=== PATIENT | female | born 1955 | race Two or more races ===

== ENCOUNTER 2017-04-16 12:33 | Inpatient (IN) | payer OTHER ==
[~2017-04-16] VITALS: Ht 152.4 cm; Wt 51.7 kg
--- NOTE | 2017-04-16 12:40 | NUR ---
SAMIA 889 FROM [facility] FOR ABD PAIN X1 DAY SENT BY DR CLINE FOR ADMISSION FOR R/O APPENDECITIS AND SBO. RR IS EVEN AND UNLABORED WITH NAD NOTED. SKIN IS WARM AND DRY. PATIENT PLACED ON HOSPITAL GOWN. AWAITING MD FOR EVAL.
[2017-04-16] MEDS ORDERED: ONDANSETRON HCL/PF 4 MG/2 ML VIAL IVP ONE (13:00)
[2017-04-16] MEDS ORDERED: MORPHINE SULFATE INJ 2 MG/ML DISP.SYRIN IV ONE (13:00)
[2017-04-16] MEDS ORDERED: IV NS 0.9% 1,000 ML BAG IV ONE (13:00)
[2017-04-16 13:10] LABS: BASOPHILS # (AUTO) 0.3 /CMM (0.0-0.2); BASOPHILS % (AUTO) 1.6 % (0.0-2.0); EOSINOPHILS # (AUTO) 0.2 /CMM (0.0-0.7); EOSINOPHILS % (AUTO) 0.8 % (0.0-6.0); HEMATOCRIT 46 % (33-45); HEMOGLOBIN 15.3 g/dL (11.5-14.8); LYMPHOCYTES # (AUTO) 0.5 /CMM (0.8-4.8); LYMPHOCYTES % (AUTO) 2.4 % (20.0-44.0); MEAN CORPUSCULAR HEMOGLOBIN 29 PG (26.0-33.0); MEAN CORPUSCULAR HGB CONC 34 g/dl (31.0-36.0); MEAN CORPUSCULAR VOLUME 88 fL (82-100); MONOCYTES # (AUTO) 0.4 /CMM (0.1-1.30); MONOCYTES % (AUTO) 2.1 % (2.0-12.0); NEUTROPHILS # (AUTO) 19.9 /CMM (1.8-8.9); NEUTROPHILS % (AUTO) 93.1 % (43.0-81.0); PLATELET COUNT (AUTO) 247 /CMM (150-450); RDW COEFFICIENT OF VARIATION 12.8 (11.5-15.0); RED BLOOD CELL COUNT(AUTO) 5.22 MIL/uL (4.0-5.2); WHITE BLOOD COUNT (AUTO) 21.3 K/uL (4.3-11.0)
[2017-04-16 13:16] LABS: CALCIUM, SERUM 9.7 mg/dL (8.5-10.1); CARBON DIOXIDE 28 mmol/L (21-32); CHLORIDE 101 mmol/L (98-107); CREATININE 0.9 mg/dL (0.6-1.3); GLUCOSE 173 mg/dL (74-106); POTASSIUM 4.6 mmol/L (3.5-5.1); SODIUM SERUM 140 mmol/L (136-145); UREA NITROGEN, BLOOD 25 mg/dL (7-18)
[2017-04-16 13:24] LABS: TROPONIN I < 0.017 ng/mL (0.00-0.056)
[2017-04-16 13:32] LABS: ALANINE AMINOTRANSFERASE 59 U/L (12-78); ALBUMIN 3.8 g/dL (3.4-5.0); ALKALINE PHOSPHATASE 120 U/L (46-116); ASPARTATE AMINOTRANSFERASE 55 U/L (15-37); BILIRUBIN,DIRECT 0.3 mg/dL (0.0-0.2); BILIRUBIN,TOTAL 1.4 mg/dL (0.2-1.0); LIPASE 102 U/L (73-393); TOTAL PROTEIN, SERUM 8.8 g/dL (6.4-8.2)
[2017-04-16] MEDS ORDERED: MORPHINE SULFATE INJ 4 MG/ML DISP.SYRIN ONE (13:49)
[2017-04-16] MEDS ORDERED: ONDANSETRON HCL/PF 4 MG/2 ML VIAL ONE (13:49)
[2017-04-16 13:52] LABS: BAND % (MANUAL) 3 % (0.0-5.0); LYMPHOCYTES % (MANUAL) 4 % (16-48); MONOCYTES % (MANUAL) 4 % (0-11.0); NEUTROPHILS % (MANUAL) 89 (42-76)
[2017-04-16 14:03] LABS: APPEARANCE,URINE Slightly Cloudy (CLEAR); BILIRUBIN,URINE SMALL (NEGATIVE); BLOOD, URINE Trace-lysed Ery/uL (NEGATIVE); COLOR,URINE Yellow (YELLOW); KETONES,URINE 15 (NEGATIVE); LEUKOCYTE ESTERASE ,URINE Negative (NEGATIVE); NITRITE, URINE Negative (NEGATIVE); PH,URINE 8.5 (5.0-8.0); PROTEIN,URINE 100 mg/dl (NEGATIVE); UGLUCOSE Negative (NEGATIVE)
[2017-04-16 14:13] LABS: BACTERIA,URINE None seen /HPF (None Seen); SQUAMOUS EPITHELIAL CELL,UR Few /HPF (None Seen); URINE AMORPHOUS PHOSPHATES Moderate /HPF (None Seen); WBC,URINE 0-3 /HPF (0-3)
[2017-04-16] MEDS ORDERED: CIPROFLOXACIN IV RTU 400 MG in PREMIX 1 EA IV SCH (14:30)
[2017-04-16] MEDS ORDERED: METRONIDAZOLE 500MG/ NS 100ML 500 MG in PREMIX 1 EA IV SCH (14:30)
[2017-04-16] MEDS ORDERED: IV NS 0.9% 500 ML BAG IV ONE (14:30)
[2017-04-16] MEDS ORDERED: METRONIDAZOLE 500MG/ NS 100ML 100 ML IV ONE (14:52)
--- NOTE | 2017-04-16 15:37 | NUR ---
PATIENT ASSIGNED TO TELE 119-1, DX WITH ABD PAIN, ELEVATED WBC, ELEVATED LACTIC ACID.
[2017-04-16 16:00] VITALS: BP 141/86
--- NOTE | 2017-04-16 16:03 | NUR ---
PAGED DR CLINE MENHADEN VESSEL PILOT FOR PANEL
[2017-04-16] MEDS ORDERED: NA P133E RC (16:17)
[2017-04-16] MEDS ORDERED: ALBU2.5V38 IH ×2 (16:17)
[2017-04-16] MEDS ORDERED: GABA-532 GT (16:17)
[2017-04-16] MEDS ORDERED: ASPI-1169 GT (16:17)
[2017-04-16] MEDS ORDERED: ATOR10TA GT (16:17)
[2017-04-16] MEDS ORDERED: METO25TA6 GT (16:17)
[2017-04-16] MEDS ORDERED: DOCU50LI GT (16:17)
[2017-04-16] MEDS ORDERED: MAGN400O6 GT (16:17)
[2017-04-16] MEDS ORDERED: ACET160E36 GT ×2 (16:17)
[2017-04-16] MEDS ORDERED: LACT-209 GT (16:17)
[2017-04-16] MEDS ORDERED: BISA10SU61 RC (16:17)
[2017-04-16] MEDS ORDERED: LEVE100S GT (16:17)
[2017-04-16] MEDS ORDERED: SENN-167 GT (16:17)
--- NOTE | 2017-04-16 16:23 | NUR ---
REPORT GIVEN TO SALENA JOLLY FOR MARYA TELE/ALONZO 107
[2017-04-16] MEDS ORDERED: ONDANSETRON HCL/PF 4 MG/2 ML VIAL IVP PRN (16:30)
[2017-04-16] MEDS ORDERED: Z GUARD REMEDY 2 OZ OINT TP PRN (16:30)
[2017-04-16] MEDS ORDERED: MORPHINE SULFATE INJ 2 MG/ML DISP.SYRIN IV PRN (16:30)
[2017-04-16] MEDS ORDERED: MAG HYDROX/AL HYDROX/SIMETH 30 ML UDC PO PRN (16:30)
[2017-04-16] MEDS ORDERED: MAGNESIUM HYDROXIDE 30 ML UDC PO PRN (16:30)
[2017-04-16 17:00] VITALS: BP 143/55
[2017-04-16] MEDS: IV D5/0.45 NACL 1,000 ML IV SCH (17:06)
--- NOTE | 2017-04-16 18:29 | NUR ---
TD RN NOTES PT RECEIVED STABLE. ENDORSE GIVEN BY NURSE PADRON. WILL MONITOR PT CLOSELY.
--- NOTE | 2017-04-16 18:30 | NUR ---
TD RN NOTES NO ACUTE CHANGES NOTED DURING THE SHIFT. DUDE MEDS GIVEN. PROVIDED COMFORT AND SAFETY. WILL ENDORSE TO THE PM NURSE.
--- NOTE | 2017-04-16 18:32 | NUR ---
TD RN NOTES LACTIC ACID 4.1. REPORTED TO DR CLINE. NO NEW ORDERS.
[2017-04-16] MEDS: LEVOFLOXACIN 500 MG /D5W 100ML 500 MG in PREMIX 1 EA IV SCH (18:36)
--- NOTE | 2017-04-16 18:53 | NUR ---
TD RN NOTES [facility] KIN FOR ADELINE HERNANDEZ. TALK TO MARLENE MCDANIELBILLING SERVICES MANAGER. VIOLETA SUP VERBALIZED TO CALL BACK TOMORROW AT 8AM
--- NOTE | 2017-04-16 19:30 | NUR ---
RN INITIAL NOTES RECEIVED PT AWAKE ON BED, NON-VERBAL AND PASSIVE. TRACH IS INTACT BUT ON 2L NASAL CANNULA, NO S/S OF RESP DISTRESS, SATURATING WELL. CURRENTLY SR ON THE MONITOR, HR 90'S. SINGH CATH INTACT. GTUBE IS CLAMPED, NPO. LEFT FOREARM 20G WITH IV ABX RUNNING, FLUSHED AND PATENT, NO S/S OF INFILTRATION/INFECTION, DRESSING CDI. BED LOW AND LOCKED, SIDERAILS UP, CALL LIGHT WITHIN REACH, BED ALARM ON. WILL CONTINUE TO MONITOR
[2017-04-16 20:00] VITALS: BP 143/82
[2017-04-17] VITALS: BP 135/89
[2017-04-17] MEDS: HYDROCODONE/APAP 5/325MG 1 EACH TABLET PO PRN ×2 (00:15→16:34)
[2017-04-17] MEDS: IV D5/0.45 NACL 1,000 ML IV SCH ×3 (02:11→22:50)
[2017-04-17 04:00] VITALS: BP 147/90
--- NOTE | 2017-04-17 06:20 | NUR ---
RN CLOSING NOTES PT REMAINS STABLE OF THE MOMENT. ALL DUE MEDS GIVEN, AM CARE PROVIDED. WILL ENDORSE MARYA TO AM RN
[2017-04-17 06:24] LABS: BASOPHILS % (AUTO) 0.1 % (0.0-2.0); EOSINOPHILS % (AUTO) 0.1 % (0.0-6.0); HEMATOCRIT 40 % (33-45); HEMOGLOBIN 13.4 g/dL (11.5-14.8); LYMPHOCYTES # (AUTO) 0.8 /CMM (0.8-4.8); LYMPHOCYTES % (AUTO) 4.7 % (20.0-44.0); MEAN CORPUSCULAR HEMOGLOBIN 30 PG (26.0-33.0); MEAN CORPUSCULAR HGB CONC 34 g/dl (31.0-36.0); MEAN CORPUSCULAR VOLUME 88 fL (82-100); MONOCYTES # (AUTO) 0.7 /CMM (0.1-1.30); MONOCYTES % (AUTO) 4.2 % (2.0-12.0); NEUTROPHILS # (AUTO) 15.8 /CMM (1.8-8.9); NEUTROPHILS % (AUTO) 90.9 % (43.0-81.0); PLATELET COUNT (AUTO) 191 /CMM (150-450); RDW COEFFICIENT OF VARIATION 13.5 (11.5-15.0); RED BLOOD CELL COUNT(AUTO) 4.48 MIL/uL (4.0-5.2); WHITE BLOOD COUNT (AUTO) 17.3 K/uL (4.3-11.0)
--- NOTE | 2017-04-17 07:00 | NUR ---
sheri initial note received pt in bed, passive, response to pain/touch stimuli, unable to track or follow commands, pt has a portex #6 capped, pt is on 2l nc, sating well, no s/s of resp.distress or discomfort noted at this time, pt is on tele monitor showing sr @92 bpm, no s/s of chest pain or discomfort noted at this time, pt has gtube, clamped, pt is currently npo at this time, pt has f/c draining yellow urine to gravity, pt has lfa #20g, running d51/2ns@100ml/hr, c/d/i/patent, flushing well, no s/s of infection/ infiltration noted at this time, all safety measures in place at all times, call light within easy reach, will monitor pt closely for changes
[2017-04-17 07:38] LABS: ALBUMIN 2.9 g/dL (3.4-5.0); BILIRUBIN,DIRECT 0.4 mg/dL (0.0-0.2); BILIRUBIN,TOTAL 2.1 mg/dL (0.2-1.0); CALCIUM, SERUM 8.5 mg/dL (8.5-10.1); CREATININE 0.7 mg/dL (0.6-1.3); MAGNESIUM 1.8 mg/dL (1.8-2.4); PHOSPHORUS 2.3 mg/dL (2.5-4.9); POTASSIUM 3.4 mmol/L (3.5-5.1); TOTAL PROTEIN, SERUM 7.1 g/dL (6.4-8.2)
[2017-04-17 08:00] VITALS: BP 135/84
--- NOTE | 2017-04-17 08:03 | NUR ---
sheri note pt is awaiting hepatic biliary hida scan, pt has no family on file, per snf need to call back to speak for clinical candy supervisor
--- NOTE | 2017-04-17 09:11 | NUR ---
sheri note called [facility], ,spoke to robin diaz regarding family and consent for hida scan, was informed pt has no family and [facility] makes decisions for the pt, per rn social welfare administrator will call regarding consent
[2017-04-17] MEDS: PANTOPRAZOLE 40 MG VIAL IV SCH (09:33)
--- NOTE | 2017-04-17 10:16 | NUR ---
sheri note received consent from 2 doctors for hida scan, consent is in the pt chart. pt has no family
[2017-04-17 12:00] VITALS: BP 153/90
--- NOTE | 2017-04-17 12:37 | NUR ---
sheri note joceline from radiology take pt to hida scan with still photographer
[2017-04-17] MEDS ORDERED: POTASSIUM PHOSPHATE MM 7.5 MMOL in IV NS 0.9% 100 ML IV SCH (13:00)
--- NOTE | 2017-04-17 13:00 | NUR ---
ALONZO NOTE- INFORMED MD THAT MED RECON WAS NOT DONE.
--- NOTE | 2017-04-17 14:04 | NUR ---
ALONZO NOTE- PT RETURNED FROM HIDA SCAN, [facility]
[2017-04-17] MEDS: POTASSIUM CL. PREMIX PERIPHER. 50 ML IV SCH ×2 (15:06→17:46)
--- NOTE | 2017-04-17 15:48 | NUR ---
sheri note- pt has only 1 iv, attempted to insert new iv x3, pt is a extremely hard stick. awaiting midline insertion
[2017-04-17 16:00] VITALS: BP 128/69
[2017-04-17] MEDS: LEVOFLOXACIN 500 MG /D5W 100ML 500 MG in PREMIX 1 EA IV SCH (17:23)
[2017-04-17 20:00] VITALS: BP 101/66
--- NOTE | 2017-04-17 20:00 | NUR ---
Rn initial note Received pt in bed, response to pain/touch stimuli, unable to track or follow commands, pt has a portex #6 capped, pt is on 2L nc, sating well, no s/s of resp.distress or discomfort noted at this time, pt is on tele monitor showing sr @92 bpm, no s/s of chest pain or discomfort noted at this time, pt has gtube, clamped, pt is currently npo at this time, pt has f/c draining yellow urine to gravity, pt has lfa #20g, running d51/2ns@100ml/hr, c/d/i/patent, flushing well, no s/s of infection/ infiltration noted at this time, all safety measures in place at all times, call light within easy reach, will monitor pt closely for changes
--- NOTE | 2017-04-17 23:30 | NUR ---
RN NOTES DR BURR CAME TO SEE PT AT 2300 FOR A CONSULT, MD LANDEROS HE IS RECOMMENDING A US GUIDED GALLBLADDER DRAINAGE. PT IS KEPT NPO WITH IV FLUIDS ORDERED. RN WILL CONT TO MONITOR AND ENDORSE TO AM SALENA.
[2017-04-18] VITALS: BP 115/63
[2017-04-18] MEDS: ZOLPIDEM TARTRATE 5 MG TABLET PO PRN ×2 (01:59→21:55)
[2017-04-18] MEDS: HYDROCODONE/APAP 5/325MG 1 EACH TABLET PO PRN ×4 (02:00→21:56)
[2017-04-18 04:00] VITALS: BP_SYST 101; BP_SYST 128; BP_DIAS 54; BP_DIAS 69
--- NOTE | 2017-04-18 06:00 | NUR ---
Rn closing note Pt in bed, response by nodding her head, pt has a portex #6 capped, pt is on 2L nc, sating well, no s/s of resp.distress or discomfort noted at this time,pt complained for pain after assessed by MD. pain medication was given. Pt is on tele monitor showing ST @101-104 bpm, no s/s of chest pain or discomfort noted at this time, pt has gtube, clamped, pt is currently npo at this time, pt has f/c draining yellow urine to gravity, pt has lfa #20g, running d51/2ns@100ml/hr, c/d/i/patent, flushing well, no s/s of infection/ infiltration noted at this time, all safety measures in place at all times, call light within easy reach,will endorse to am rn.
[2017-04-18 06:31] LABS: CALCIUM, SERUM 8.1 mg/dL (8.5-10.1); CREATININE 0.8 mg/dL (0.6-1.3); POTASSIUM 3.5 mmol/L (3.5-5.1)
[2017-04-18 08:00] VITALS: BP 112/77
--- NOTE | 2017-04-18 08:05 | NUR ---
RN INITIAL NOTES RN RECEIVED PT AWAKE IN BED, NON-VERBAL AND PASSIVE PT TRACKS NURSE BUT LANGUAGE BARRIER PRESENT . TRACH IS INTACT PT ON 2L NASAL CANNULA, NO S/S OF RESP DISTRESS, SATURATING WELL. CURRENTLY SR ON THE MONITOR, HR 90'S. SINGH CATH INTACT DRAINING YELLOW URINE. GTUBE IS CLAMPED, NPO. RIGHT UPPER ARM PICC FLUSHED AND PATENT,IV FLUID CURRENTLY RUNNING. NO S/S OF INFILTRATION/INFECTION, DRESSING CDI. BED LOW AND LOCKED, SIDERAILS UP, CALL LIGHT WITHIN REACH, BED ALARM ON SAFETY MEASURES IN PLACE . WILL CONTINUE TO MONITOR PATIENT THROUGHOUT THE DAY
[2017-04-18] MEDS: IV D5/0.45 NACL 1,000 ML IV SCH ×3 (08:16→23:41)
[2017-04-18] MEDS: PANTOPRAZOLE 40 MG VIAL IV SCH (08:16)
[2017-04-18 12:00] VITALS: BP 112/77
[2017-04-18 16:00] VITALS: BP 123/78
[2017-04-18] MEDS: LEVOFLOXACIN 500 MG /D5W 100ML 500 MG in PREMIX 1 EA IV SCH (17:05)
--- NOTE | 2017-04-18 19:45 | NUR ---
RN NOTE RN CALLED [facility] TO SPEAK WITH LINING BRUSHER PHYSICIAN TO OBTAIN ORDER PER MD REDDY- PER HIS NOTE AND RECOMMENDATION - ORDER- - Ultrasound could be obtained if further evaluation -CT GUIDED - TO DRAIN FLUIDS -Consideration for cholecystostomy tube placement to allow resolution of extensive inflammation, RESTRAINT ORDER to prevent her from removing additional lines. charge nurse Jaylin notified pm RN notified and also updated , no nursing orders to obtain test requested at this time
[2017-04-18 19:50] LABS: EOSINOPHILS # (AUTO) 0.1 /CMM (0.0-0.7); EOSINOPHILS % (AUTO) 0.7 % (0.0-6.0); HEMOGLOBIN 12.6 g/dL (11.5-14.8); MEAN CORPUSCULAR HGB CONC 34 g/dl (31.0-36.0); PLATELET COUNT (AUTO) 179 /CMM (150-450)
--- NOTE | 2017-04-18 20:00 | NUR ---
RN INITIAL NOTES RECEIVED PT AWAKE IN BED, NON-VERBAL. PT NODS HER HEAD IF ASKED IF SHE IS IN PAIN. TRACH IS INTACT PT ON 2L NASAL CANNULA, NO S/S OF RESP DISTRESS, SATURATING WELL. CURRENTLY SR ON THE MONITOR, HR 90'S. SINGH CATH INTACT DRAINING YELLOW URINE. GTUBE IS CLAMPED, NPO. PT HAS NO IV ACCESS AT THIS TIME. BED LOW AND LOCKED, SIDERAILS UP, CALL LIGHT WITHIN REACH, BED ALARM ON SAFETY MEASURES IN PLACE . WILL CONTINUE TO MONITOR PATIENT.
--- NOTE | 2017-04-18 20:27 | NUR ---
RN NOTE NO PRIOR ORDERS OBTAINED ALL NEW ORDERS PLACED CHARGE NURSE AND PM RN SPOKE WITH THE MD REDDY TO CLARIFY ORDERS , MD YARN WEIGHER CONTACTED AND STATES TO FOLLOW ALL MD ORDERS PM RN WILL CONTINUE TO FOLLOW PATIENT AWAITING MIDLINE DAYSHIFT PRINT DEVELOPER [employer] NOTIFIED AND STATED THAT SHE WILL PLACE A ORDER
--- NOTE | 2017-04-18 20:30 | NUR ---
RN NOTES RN CALLED [facility], REQUESTING A CONSENT FOR PTS PLANNED PROCEDURE. RN AT THE REHABILITATION STATED THE PT WAS IDT ONLY AT THE FACILITY AND COULD NOT GIVE CONSENT TO SO. RN REPORTED TO LOFTSMAN/WOMAN ELSA AND WILL ENDORSE TO AM RN FOR FOLLOWUP.
[2017-04-18 20:38] LABS: BASOPHILS % (AUTO) 0.3 % (0.0-2.0); HEMATOCRIT 37 % (33-45); LYMPHOCYTES # (AUTO) 1.1 /CMM (0.8-4.8); LYMPHOCYTES % (AUTO) 8.4 % (20.0-44.0); MEAN CORPUSCULAR HEMOGLOBIN 30 PG (26.0-33.0); MEAN CORPUSCULAR VOLUME 88 fL (82-100); MONOCYTES # (AUTO) 0.5 /CMM (0.1-1.30); MONOCYTES % (AUTO) 4.1 % (2.0-12.0); NEUTROPHILS # (AUTO) 11.4 /CMM (1.8-8.9); NEUTROPHILS % (AUTO) 86.5 % (43.0-81.0); RED BLOOD CELL COUNT(AUTO) 4.16 MIL/uL (4.0-5.2); WHITE BLOOD COUNT (AUTO) 13.1 K/uL (4.3-11.0)
[2017-04-18 21:05] VITALS: BP 114/67
[2017-04-18 21:29] LABS: BAND % (MANUAL) 2 % (0.0-5.0); LYMPHOCYTES % (MANUAL) 6 % (16-48); MONOCYTES % (MANUAL) 6 % (0-11.0); NEUTROPHILS % (MANUAL) 86 (42-76)
[2017-04-19 00:38] VITALS: BP 112/80
[2017-04-19 04:00] VITALS: BP 125/84
[2017-04-19] MEDS: HYDROCODONE/APAP 5/325MG 1 EACH TABLET PO PRN ×4 (04:01→21:59)
--- NOTE | 2017-04-19 06:44 | NUR ---
Rn closing note Pt in bed, pt has a portex #6 capped, pt is on 2L nc, sating well, no s/s of resp.distress or discomfort noted at this time,pt complained for pain after assessed by MD. pain medication was given. Pt is on tele monitor showing ST @106 bpm, no s/s of chest pain or discomfort noted at this time, pt c/o of pain, pain meds given as ordered.Pt has gtube, clamped, pt is currently npo at this time, pt has f/c draining yellow urine to gravity, pt has R FA running d51/2ns@70ml/hr, c/d/i/patent, flushing well, no s/s of infection/ infiltration noted at this time, all safety measures in place at all times, call light within easy reach,will endorse to am rn.
[2017-04-19 07:32] LABS: BASOPHILS % (AUTO) 0.2 % (0.0-2.0); EOSINOPHILS # (AUTO) 0.1 /CMM (0.0-0.7); EOSINOPHILS % (AUTO) 1.5 % (0.0-6.0); HEMATOCRIT 35 % (33-45); HEMOGLOBIN 12.2 g/dL (11.5-14.8); LYMPHOCYTES # (AUTO) 1.1 /CMM (0.8-4.8); LYMPHOCYTES % (AUTO) 11.8 % (20.0-44.0); MEAN CORPUSCULAR HEMOGLOBIN 31 PG (26.0-33.0); MEAN CORPUSCULAR HGB CONC 35 g/dl (31.0-36.0); MEAN CORPUSCULAR VOLUME 89 fL (82-100); MONOCYTES # (AUTO) 0.6 /CMM (0.1-1.30); MONOCYTES % (AUTO) 6.1 % (2.0-12.0); NEUTROPHILS # (AUTO) 7.4 /CMM (1.8-8.9); NEUTROPHILS % (AUTO) 80.4 % (43.0-81.0); PLATELET COUNT (AUTO) 168 /CMM (150-450); RDW COEFFICIENT OF VARIATION 13.4 (11.5-15.0); RED BLOOD CELL COUNT(AUTO) 3.96 MIL/uL (4.0-5.2); WHITE BLOOD COUNT (AUTO) 9.2 K/uL (4.3-11.0)
[2017-04-19 07:45] LABS: ALBUMIN 2.2 g/dL (3.4-5.0); BILIRUBIN,TOTAL 2.2 mg/dL (0.2-1.0); CALCIUM, SERUM 8.1 mg/dL (8.5-10.1); CREATININE 0.6 mg/dL (0.6-1.3); MAGNESIUM 1.8 mg/dL (1.8-2.4); PHOSPHORUS 2.7 mg/dL (2.5-4.9); TOTAL PROTEIN, SERUM 6.6 g/dL (6.4-8.2)
[2017-04-19 08:00] VITALS: BP 119/78
--- NOTE | 2017-04-19 08:37 | NUR ---
SPOKE WITH SALENA GONZÁLES AND EXPLAINED TO HER THAT THE ORDER IS WRONG. THE PATIENT DOES NOT HAVE ANY PLEURAL EFFUSION, BILATERALLY AND THE PATIENT NEEDS A DRAINAGE ( PIG TAIL) IN HER GALLBLADDER, WHICH IS DONE UNDER CT. I ALSO INFORMED HER THAT IS NO RADIOLOGIST IN HOUSE TODAY AND TOMORROW, AND IS GOING TO BE DONE PROBABLY ON FRIDAY
--- NOTE | 2017-04-19 08:55 | NUR ---
RN NOTE RN RECEIVED A CALL VIA ULTRASOUND , RN SPOKE WITH KENNETH FROM ULTRASOUND INFORMING RN THAT THE US GUIDED THORACENTESIS ORDER SHOULD BE CANCELLED AND REORDERED UNDER CT , RN ALSO INFORMED THAT RADIOLOGY IS NOT HERE DURING THE WEEKEND TO COMPLETE THIS ORDER , CHARGE NURSE IMTIAZ NOTIFIED ABOUT THIS CANCELLATION AND NEW ORDER PLACEMENT. PATIENT REMAINS IN STABLE CONDITION AT THIS TIME RN WILL CONTINUE TO FOLLOW . CONSENT ORDER NEEDS TO BE SIGNED BY 2 MD FOR CONSENT FOR PROCEDURE , RN WILL CONTINUE TO FOLLOW
[2017-04-19] MEDS: PANTOPRAZOLE 40 MG VIAL IV SCH (09:19)
[2017-04-19] MEDS ORDERED: POTASSIUM CL. PREMIX PERIPHER. 50 ML IV SCH (12:30)
[2017-04-19] MEDS: IV D5/0.45 NACL 1,000 ML IV SCH (12:46)
--- NOTE | 2017-04-19 13:28 | NUR ---
RN NOTE INFUSION STOPPED DUE TO PATIENT COMPLAINING OF IV SITE PAIN AT THIS TIME ICE BAG APPLIED AND ELEVATED ON A PILLOW. MD CLINE NOTIFIED AND AUTHORIZED NEW ORDER FOR POTASSIUM CHLORIDE PO 40 MEQ VIA G-TUBE RN WILL CONTINUE TO FOLLOW THE PATIENT PROGRESS
[2017-04-19] MEDS ORDERED: POTASSIUM CHLORIDE 20 MEQ TAB.PRT.SR PO ONE (14:00)
[2017-04-19 16:00] VITALS: BP_SYST 135; BP_SYST 136; BP_DIAS 72; BP_DIAS 85
[2017-04-19] MEDS: ACETAMINOPHEN 325 MG TABLET PO PRN (16:53)
[2017-04-19] MEDS: LEVOFLOXACIN 500 MG /D5W 100ML 500 MG in PREMIX 1 EA IV SCH (16:54)
--- NOTE | 2017-04-19 18:33 | NUR ---
RN CLOSING NOTE PATIENT REMAINS STABLE THROUGHOUT THE DAY, NO SOB NOTED , PATIENT TURNED AND REPOSITIONED ALL NEEDS ATTENDED , PATIENT MEDICATION GIVEN PRN. PLAN OF CARE DISCUSSED WITH FAMILY. CONTINUATION OF CARE WILL BE ENDORSED TO ONCOMING SHIFT
[2017-04-19 20:00] VITALS: BP 119/81
[2017-04-20] VITALS (8 sets, daily range): BP systolic 127–144; BP diastolic 75–92
[2017-04-20] MEDS: IV D5/0.45 NACL 1,000 ML IV SCH (04:52)
--- NOTE | 2017-04-20 07:30 | NUR ---
MS RN OPENING NOTES RECEIVED PATIENT IN STABLE CONDITION. IN NO APPARENT DISTRESS. BEDSIDE RAILS ARE UPX2. BED IS LOCKED AND LOWERED. CALL LIGHT IS WITHIN REACH. WILL CONTINUE TO MONITOR.
[2017-04-20] MEDS: PANTOPRAZOLE 40 MG VIAL IV SCH (10:05)
[2017-04-20 10:44] LABS: ALBUMIN 2.2 g/dL (3.4-5.0); BILIRUBIN,DIRECT 0.3 mg/dL (0.0-0.2); BILIRUBIN,TOTAL 1.2 mg/dL (0.2-1.0); CALCIUM, SERUM 8.1 mg/dL (8.5-10.1); CREATININE 0.6 mg/dL (0.6-1.3); POTASSIUM 3.1 mmol/L (3.5-5.1); TOTAL PROTEIN, SERUM 6.6 g/dL (6.4-8.2)
[2017-04-20 10:48] LABS: BASOPHILS % (AUTO) 0.1 % (0.0-2.0); EOSINOPHILS # (AUTO) 0.1 /CMM (0.0-0.7); EOSINOPHILS % (AUTO) 1.7 % (0.0-6.0); HEMATOCRIT 33 % (33-45); HEMOGLOBIN 11.1 g/dL (11.5-14.8); LYMPHOCYTES # (AUTO) 0.7 /CMM (0.8-4.8); LYMPHOCYTES % (AUTO) 8.3 % (20.0-44.0); MEAN CORPUSCULAR HEMOGLOBIN 30 PG (26.0-33.0); MEAN CORPUSCULAR HGB CONC 34 g/dl (31.0-36.0); MEAN CORPUSCULAR VOLUME 88 fL (82-100); MONOCYTES # (AUTO) 0.3 /CMM (0.1-1.30); MONOCYTES % (AUTO) 4.2 % (2.0-12.0); NEUTROPHILS % (AUTO) 85.7 % (43.0-81.0); PLATELET COUNT (AUTO) 210 /CMM (150-450); RDW COEFFICIENT OF VARIATION 13.3 (11.5-15.0); RED BLOOD CELL COUNT(AUTO) 3.73 MIL/uL (4.0-5.2); WHITE BLOOD COUNT (AUTO) 8.1 K/uL (4.3-11.0)
[2017-04-20 10:58] LABS: INR 0.9 (0.87-1.13)
--- NOTE | 2017-04-20 11:23 | NUR ---
OBTAINED VERBAL CONSENT AND OK TO PROCEED WITH CHOLECYSTECTOMY TO PT. FROM DR. CLINE AND CURTIS DOWNS,SINCE PER SNF FAMILY NO NEXT OF KIN AND NEED [address] MAUREEN FERNANDEZ AND ALSO DR. PASCAL CLEARED PT. FOR SURGERY. PHARMACY WILL REPLACE POTASSIUM PER PROTOCOL.
--- NOTE | 2017-04-20 11:25 | NUR ---
PATIENT WHEELED TO OR VIA STRETCHER.
--- NOTE | 2017-04-20 11:25 | NUR ---
PATIENT TAKEN TO OR.
[2017-04-20] MEDS ORDERED: LIDOCAINE 0.5% HCL 50 ML VIAL ONE (11:31)
[2017-04-20] MEDS ORDERED: BUPIVACAINE 0.25% 75 MG/30 ML VIAL ONE (11:31)
--- NOTE | 2017-04-20 14:38 | NUR ---
GAVE REPORT TO MILES RN 3W.
[2017-04-20] MEDS ORDERED: FENTANYL PF 100MCG/2ML AMPUL ONE (14:52)
--- NOTE | 2017-04-20 15:44 | NUR ---
MS/RN OPENING NOTE PATIENT RECEIVED IN BED. ALERT AND ORIENTED X2. PATIENT DROWSY. RESPIRATION REGULAR AND UNLABORED. DENIES SOB, PAIN. NO MANIFESTATION OF DISCOMFORT NOTED. PATIENT IN STABLE CONDITION. DRESSING ON ABDOMINAL INCISION SITE INTACT AND NO DRAINAGE NOTED. GREGORY G 18 MIDLINE PATENT. VITAL SIGNS WNL. BED LOW AND LOCKED. SIDE RAILS UP X3. CALL LIGHT WITHIN REACH. WILL CONTINUE TO MONITOR.
[2017-04-20] MEDS: IV D5/0.45 NACL 1,000 ML IV PRN (15:55)
[2017-04-20] MEDS: POTASSIUM CL. PREMIX PERIPHER. 50 ML IV SCH ×4 (16:11→19:26)
[2017-04-20] MEDS ORDERED: HYDROMORPHONE INJ 0.5 MG/0.5 ML SYRINGE IV PRN (16:30)
[2017-04-20] MEDS: LEVOFLOXACIN 500 MG /D5W 100ML 500 MG in PREMIX 1 EA IV SCH (17:00)
--- NOTE | 2017-04-20 19:15 | NUR ---
MS/RN CLOSING NOTED PATIENT IN BED AWAKE. ALERT AND ORIENTED X3. BY THE BEDSIDE. RESPIRATION REGULAR AND UNLABORED. DENIES SOB, PAIN AT THIS TIME. ABDOMINAL INCISION DRESSING INTACT AND DRAINAGE NOTED. NO BLEEDING AND NO S/S INFECTION NOTED. YOLA DRAIN SEROUS DRAINAGE AND NO FOUL ODOR NOTED. RIGHT UPPER ARM MIDLINE G 18 PATENT AND IV INFUSING WITH NO S/S INFILTRATION. THE PATIENT IN STABLE CONDITION. BED LOW AND LOCKED. SIDE RAILS UP X3. CALL LIGHT WITHIN REACH. WILL ENDORSE TO MINER OPERATOR.
--- NOTE | 2017-04-20 19:16 | NUR ---
MS/RN NOTE NOTED THAT THE PATIENT HAS AN ORDER FOR DILAUDID PRN AND ALLERGY TO HYDROMORPHONE. DR CLINE MADE AWARE AND MD GAVE A NEW ORDER FOR MORPHINE. USING THE INTERP ID NUMBER [id number] THE ON THE PHONE AND STATED THAT THE PATIENT HAS BEEN TAKING MORPHINE AT HOME AND DOES NOT GET ANY ALLERGIC REACTIONS FROM THE MEDICATION. THE PATIENT NOT ABLE TO TALK BUT SHOWS UNDERSTANDING AND WITH EYE CONTACT AND HEAD MOVEMENT AGREEING NOT BEING ALLERGIC TO MORPHINE. DR CLINE MADE AWARE. THE ORDER NOTED AND CARRIED OUT.
--- NOTE | 2017-04-20 19:25 | NUR ---
MS/RN NOTE PER DR REDDY CT GUIDED CATH PLACEMENT OF GALLBLADDER TO BE CANCELED. UPCOMING SHIFT IS ENDORSED.
[2017-04-20] MEDS ORDERED: MORPHINE SULFATE INJ 2 MG/ML DISP.SYRIN IV PRN (19:30)
--- NOTE | 2017-04-20 19:51 | NUR ---
MS/RN INITIAL NOTES RECEIVED PT LAYING IN BED WITH HOB, SLEEPING COMFORTABLY. EASILY AROUSABLE. NOTED WITH CAPPED TRACH. RESPIRATIONS ARE EVEN AND UNLABORED, NOT IN ANY ACUTE DISTRESS NOTED. PUPILS ARE REACTIVE TO LIGHT AND ARE EQUAL. IV SITE IS INTACT, DRESSING KEPT CLEAN AND DRY. DENIES ANY PAIN AT THIS TIME. SAFETY MEASURES IN PLACE. INSTRUCTED PT TO USE CALL LIGHT WHEN ASSISTANCE IS NEEDED, CALL LIGHT IS LEFT WITHIN REACH. WILL CONTINUE TO MONITOR THROUGHOUT SHIFT.
--- NOTE | 2017-04-21 | NUR ---
RN NOTES VITAL SIGNS: BP118/83 P83 R18 T98.5 SPO2 96% RA WITH CAPPED TRACH. PT IS EASILY AROUSABLE. RESPIRATIONS ARE EVEN AND UNLABORED, NOT IN ANY ACUTE DISTRESS NOTED. NO FACIAL GRIMACING OR MOANING NOTED AT TH IS TIME. WILL CONTINUE TO MONITOR.
[2017-04-21] MEDS: IV D5/0.45 NACL 1,000 ML IV PRN (05:33)
--- NOTE | 2017-04-21 06:17 | NUR ---
MS/RN CLOSING NOTES ALL NEEDS MET AND RENDERED. PT IS AWAKE, ALERT AND RESPONSIVE. REMAINS AFEBRILE, RESPIRATIONS ARE EVEN AND UNLABORED, NOT IN ANY ACUTE DISTRESS NOTED. NO FACIAL GRIMACING OR MOANING NOTED. YOLA DRAIN NOTED WITH BLOODY OUTPUT OF 25CC, DRESSING CHANGED IT WAS SATURATED. TOLERATED DRESSING CHANGE WELL. GT SITE KEPT CLEAN AND DRY, DRESSING CHANGED. GT INTACT, NOTED W/ RESIDUAL OF 30CC OF GREEN FLUID AND FLUSHED BACK WITH NO DIFFICULTIES. MIDLINE TO GREGORY INTACT, DRESSING KEPT CLEAN AND DRY. SAFETY MEASURES IN PLACE. BED IS IN ITS LOCKED AND LOWEST POSITION. INSTRUCTED PT TO USE CALL LIGHT WHEN ASSISTANCE IS NEEDED, CALL LIGHT IS LEFT WITHIN REACH. WILL ENDORSE TO NEXT SHIFT FOR CONTINUITY OF CARE.
--- NOTE | 2017-04-21 07:10 | NUR ---
RN NOTES PT IS LAYING IN BED, AWAKE, NO SIGNS OF DISTRESS NOTED. PT ON RA, RESPIRATIONS ARE EVEN AND UNLABORED. TRACH IS IN PLACE AND CAPPED. GREGORY MIDLINE IS INTACT AND RUNNING D51/2 NS @ 70ML/HR. SINGH CATHETER IS IN PLACE AND DRAINING. YOLA DRAIN IS INTACT AND DRAINING BLOODY FLUIDY. G-TUBE IS INTACT AND CLAMPED. SAFETY MEASURES ARE IN PLACE, CALL LIGHT IS IN REACH. WILL CONTINUE TO MONITOR.
[2017-04-21 07:33] LABS: BASOPHILS % (AUTO) 0.2 % (0.0-2.0); HEMATOCRIT 27 % (33-45); HEMOGLOBIN 9.5 g/dL (11.5-14.8); LYMPHOCYTES # (AUTO) 0.7 /CMM (0.8-4.8); LYMPHOCYTES % (AUTO) 9.4 % (20.0-44.0); MEAN CORPUSCULAR HEMOGLOBIN 31 PG (26.0-33.0); MEAN CORPUSCULAR HGB CONC 35 g/dl (31.0-36.0); MEAN CORPUSCULAR VOLUME 88 fL (82-100); MONOCYTES # (AUTO) 0.5 /CMM (0.1-1.30); MONOCYTES % (AUTO) 7.5 % (2.0-12.0); NEUTROPHILS % (AUTO) 82.9 % (43.0-81.0); PLATELET COUNT (AUTO) 190 /CMM (150-450); RDW COEFFICIENT OF VARIATION 13.4 (11.5-15.0); WHITE BLOOD COUNT (AUTO) 7.2 K/uL (4.3-11.0)
[2017-04-21 07:42] LABS: ALBUMIN 1.8 g/dL (3.4-5.0); BILIRUBIN,TOTAL 0.8 mg/dL (0.2-1.0); CALCIUM, SERUM 7.8 mg/dL (8.5-10.1); CREATININE 0.7 mg/dL (0.6-1.3); POTASSIUM 3.4 mmol/L (3.5-5.1); TOTAL PROTEIN, SERUM 5.8 g/dL (6.4-8.2)
[2017-04-21 08:00] VITALS: BP 128/84
[2017-04-21] MEDS: PANTOPRAZOLE 40 MG VIAL IV SCH (08:00)
[2017-04-21] MEDS ORDERED: POTASSIUM CHLORIDE 20 MEQ POWDER PACKET NG SCH (10:30)
[2017-04-21] MEDS: POTASSIUM CL. PREMIX PERIPHER. 50 ML IV SCH ×4 (13:13→16:49)
--- NOTE | 2017-04-21 14:00 | NUR ---
RN NOTES WAS NOTIFIED BY PHARMACY THAT MED RECON HAS NOT BEEN DONE YET FOR THIS PT. MADE AWARE.
[2017-04-21 16:00] VITALS: BP 128/76
[2017-04-21] MEDS: LEVOFLOXACIN 500 MG /D5W 100ML 500 MG in PREMIX 1 EA IV SCH (17:58)
--- NOTE | 2017-04-21 18:30 | NUR ---
RN NOTES PT IS LAYING DOWN IN BED, RESTING COMFORTABLY. PT ON RA, RESPIRATIONS ARE EVEN AND UNLABORED. TRACH IS IN PLACE AND CAPPED. GREGORY MIDLINE IS INTACT AND RUNNING D51/2 NS @ 70ML/HR AND R WRIST IV IS INTACT AND SL. G-TUBE IS IN PLACE AND CLAMPED. YOLA DRAIN IS INTACT WITH DRESSING COVERING, 10ML OUTPUT. POTASSIUM REPLACED PER MD ORDER. SINGH CATHETER IS INTACT AND DRAINING, 2000ML OUTPUT. SAFETY MEASURES ARE IN PLACE, CALL LIGHT IS IN REACH. WILL ENDORSE TO LOADING UNIT OPERATOR SEATING FN FOR CONTINUITY OF CARE.
[2017-04-21 20:00] VITALS: BP 140/91
[2017-04-22] MEDS: IV D5/0.45 NACL 1,000 ML IV PRN (03:17)
--- NOTE | 2017-04-22 06:15 | NUR ---
RN NOTES No significant change in condition. No manifestation of pain, no facial grimacing noted. YOLA drain intact and patent. Gtube patent and intact with no gastric residual. HOB kept elevated. All needs attended. Turned and repositioned as scheduled. Will continue to monitor.
--- NOTE | 2017-04-22 07:10 | NUR ---
RN NOTES PT IS LAYING DOWN IN BED, NO SIGNS OF DISTRESS NOTED. PT ON RA, RESPIRATIONS ARE EVEN AND UNLABORED. YOLA DRAIN IS INTACT AND DRAINING. G-TUBE IS INTACT AND CLAMPED. SINGH CATHETER IS IN PLACE AND DRAINING. GREGORY MIDLINE IS INTACT AND RUNNING D5 1/2 NS @ 70ML/HR. SAFETY MEASURES ARE IN PLACE, CALL LIGHT IS IN REACH. WILL CONTINUE TO MONITOR.
[2017-04-22 07:32] LABS: BASOPHILS % (AUTO) 0.3 % (0.0-2.0); EOSINOPHILS # (AUTO) 0.2 /CMM (0.0-0.7); EOSINOPHILS % (AUTO) 2.2 % (0.0-6.0); HEMATOCRIT 30 % (33-45); HEMOGLOBIN 10.1 g/dL (11.5-14.8); LYMPHOCYTES # (AUTO) 0.8 /CMM (0.8-4.8); LYMPHOCYTES % (AUTO) 10.1 % (20.0-44.0); MEAN CORPUSCULAR HEMOGLOBIN 30 PG (26.0-33.0); MEAN CORPUSCULAR HGB CONC 34 g/dl (31.0-36.0); MEAN CORPUSCULAR VOLUME 88 fL (82-100); MONOCYTES # (AUTO) 0.4 /CMM (0.1-1.30); MONOCYTES % (AUTO) 4.9 % (2.0-12.0); NEUTROPHILS # (AUTO) 6.2 /CMM (1.8-8.9); NEUTROPHILS % (AUTO) 82.5 % (43.0-81.0); RDW COEFFICIENT OF VARIATION 13.6 (11.5-15.0); RED BLOOD CELL COUNT(AUTO) 3.36 MIL/uL (4.0-5.2); WHITE BLOOD COUNT (AUTO) 7.5 K/uL (4.3-11.0)
[2017-04-22 07:42] LABS: ALBUMIN 2.1 g/dL (3.4-5.0); BILIRUBIN,TOTAL 0.7 mg/dL (0.2-1.0); CREATININE 0.7 mg/dL (0.6-1.3); MAGNESIUM 1.5 mg/dL (1.8-2.4); PHOSPHORUS 2.6 mg/dL (2.5-4.9); POTASSIUM 3.5 mmol/L (3.5-5.1); TOTAL PROTEIN, SERUM 6.6 g/dL (6.4-8.2)
[2017-04-22 08:00] VITALS: BP 158/89
[2017-04-22] MEDS ORDERED: MORPHINE SULFATE INJ 4 MG/ML DISP.SYRIN IV PRN (08:00)
[2017-04-22] MEDS: PANTOPRAZOLE 40 MG VIAL IV SCH (08:03)
[2017-04-22 09:22] LABS: PLATELET COUNT (AUTO) 237 /CMM (150-450)
[2017-04-22] MEDS: Magnesium 1GM/D5W 100ML PREMIX 100 ML IV SCH ×2 (10:09→11:10)
[2017-04-22] MEDS: POTASSIUM CL. PREMIX PERIPHER. 50 ML IV SCH ×4 (12:09→15:20)
[2017-04-22] MEDS: FIBERSOURCE HN 1,000 ML BOTTLE GT PRN (14:06)
[2017-04-22] MEDS: HYDROCODONE/APAP 5/325MG 1 EACH TABLET PO PRN (14:18)
[2017-04-22 16:00] VITALS: BP_SYST 123; BP_SYST 141; BP_DIAS 71; BP_DIAS 73
[2017-04-22] MEDS: LEVOFLOXACIN (500MG) 500 MG TABLET PO SCH (17:09)
--- NOTE | 2017-04-22 18:32 | NUR ---
RN NOTES PT IS LAYING DOWN IN BED, RESTING COMFORTABLY. GREGORY MIDLINE IS INTACT AND RUNNING D51/2 NS @ 70 ML/HR. G-TUBE IS INTACT AND RUNNING FIBERSOURCE @ 50ML/HR. YOLA DRAIN IS INTACT AND DRAINING, OUTPUT 10ML. SURGICAL INCISIONAL DRESSINGS ARE INTACT. SINGH CATHETER IS INTACT AND DRAINING. PT WAS KEPT CLEAN AND DRY, CHANGED NEEDED. PT TURNED Q2HRS. ALL MEDS WERE GIVEN ORDERED. NO SIGNS OF DISTRESS NOTED. WILL ENDORSE TO ARC AND GAS WELDER RN FOR CONTINUITY OF CARE.
--- NOTE | 2017-04-22 19:00 | NUR ---
RN OPENING NOTES PT RESTING IN BED. NO S/S OF PAIN, DISTRESS OR SOB AT THIS TIME. PT HAS A GREGORY MIDLINE INTACT AND RUNNING D5 1/2 NS@70ML/HR. PT HAS A SINGH CATHETER INTACT AND DRAINING WELL. PT HAS A YOLA DRAIN INTACT. PT ALSO HAS A GTUBE RUNNING FIBERSOURCE @50ML/HR. SAFETY PRECAUTIONS IN PLACE. WILL CONTINUE TO MONITOR.
[2017-04-22 20:00] VITALS: BP 133/79
[2017-04-23] VITALS: BP 118/74
[2017-04-23] MEDS: IV D5/0.45 NACL 1,000 ML IV PRN ×2 (00:09→16:46)
[2017-04-23 04:00] VITALS: BP 122/77
[2017-04-23 07:35] LABS: BASOPHILS % (AUTO) 0.2 % (0.0-2.0); EOSINOPHILS # (AUTO) 0.2 /CMM (0.0-0.7); EOSINOPHILS % (AUTO) 3.7 % (0.0-6.0); HEMATOCRIT 28 % (33-45); HEMOGLOBIN 9.7 g/dL (11.5-14.8); LYMPHOCYTES # (AUTO) 0.9 /CMM (0.8-4.8); LYMPHOCYTES % (AUTO) 14.4 % (20.0-44.0); MEAN CORPUSCULAR HEMOGLOBIN 30 PG (26.0-33.0); MEAN CORPUSCULAR HGB CONC 34 g/dl (31.0-36.0); MEAN CORPUSCULAR VOLUME 88 fL (82-100); MONOCYTES # (AUTO) 0.4 /CMM (0.1-1.30); MONOCYTES % (AUTO) 6.7 % (2.0-12.0); NEUTROPHILS # (AUTO) 4.7 /CMM (1.8-8.9); PLATELET COUNT (AUTO) 250 /CMM (150-450); RDW COEFFICIENT OF VARIATION 13.5 (11.5-15.0); RED BLOOD CELL COUNT(AUTO) 3.21 MIL/uL (4.0-5.2); WHITE BLOOD COUNT (AUTO) 6.3 K/uL (4.3-11.0)
--- NOTE | 2017-04-23 07:40 | NUR ---
RN NOTES: PATIENT RESTING IN BED. AOX1-2. EASILY AROUSABLE. NO FACIAL GRIMACING NOTED. NO SIGNS OF DISTRESS NOTED. NONLABORED BREATHING ON ROOM AIR. TRACH WITH PORTEX 5 IS CAPPED. MIDLINE ON GREGORY PATENT AND INTACT. SAFETY PREACUTIONS IMPLEMENTED Addendum: 04/24/17 at 1824 by HAYLIE COLLIER RN RN NOTES: PORTEX 6
--- NOTE | 2017-04-23 07:44 | NUR ---
RN CLOSING NOTES PT RESTING IN BED. NO SIGNIFICANT CHANGES OVERNIGHT. NO S/S OF PAIN, DISTRESS OR SOB AT THIS TIME. PT HAS A GREGORY MIDLINE INTACT AND RUNNING D5 1/2 NS@70ML/HR. PT HAS A SINGH CATHETER INTACT AND DRAINING WELL OUTPUT 1300. PT HAS A YOLA DRAIN INTACT OUTPUT 5ML. PT ALSO HAS A GTUBE RUNNING FIBERSOURCE @50ML/HR. SAFETY PRECAUTIONS IN PLACE. WILL ENDORSE TO DAY SHIFT NURSE FOR CONTINUITY OF CARE.
[2017-04-23 08:00] VITALS: BP_SYST 131; BP_SYST 137; BP_DIAS 83
[2017-04-23 08:31] LABS: CALCIUM, SERUM 7.8 mg/dL (8.5-10.1); CREATININE 0.7 mg/dL (0.6-1.3); MAGNESIUM 1.8 mg/dL (1.8-2.4); POTASSIUM 3.5 mmol/L (3.5-5.1)
[2017-04-23] MEDS: PANTOPRAZOLE 40 MG VIAL IV SCH (09:08)
[2017-04-23] MEDS: HYDROCODONE/APAP 5/325MG 1 EACH TABLET PO PRN ×2 (10:37→22:34)
--- NOTE | 2017-04-23 12:58 | NUR ---
WOUND CARE CONSULT: PT PRESENTS WITH CAPPED TRACH, IMMOBILITY WITH CURRENT MARCELLA SCORE OF 12 AND ABDOMINAL INCISIONS (CLOSED) WITH CHAKA WELL YOLA DRAIN. SCARRING AND STAINING OF SKIN NOTED TO SACRAL/BUTTOCKS AREA. ALL SKIN PROTECTION MEASURES IN PLACE AND DISCUSSED WITH NURSING STAFF. PT ON FIRST STEP MATTRESS ORDERED. DR ORLANDO CALLED BY DENTAL OFFICE ASSISTANT AND GAVE ORDER TO CHANGE DRESSINGS. DRESSINGS CHANGED BY RN AND PT TOLERATED WELL. NO DRAINAGE NOTED. SMALL AMOUNT OF RED DRAINAGE IN YOLA BULB. WILL SEE PRN. M William IN AGREEMENT WITH PLAN OF CARE. Addendum: 04/23/17 at 1302 by MARBELLA CORREIA WNDNU Amended: Links added.
[2017-04-23 16:00] VITALS: BP 137/79
[2017-04-23] MEDS: FIBERSOURCE HN 1,000 ML BOTTLE GT PRN (16:46)
[2017-04-23] MEDS: LEVOFLOXACIN (500MG) 500 MG TABLET PO SCH (16:51)
--- NOTE | 2017-04-23 16:57 | NUR ---
RN NOTES: LEVAQUIN GIVEN. GTUBE FEEDING HELD PRIOR
--- NOTE | 2017-04-23 17:57 | NUR ---
RN NOTES: GTUBE FEEDING RESUMED PER ORDERS. NO RESIDUALS. YOLA DRAIN OUTPUT OF 20 ML OF SANGUINOUS DRAINAGE OUTPUT
--- NOTE | 2017-04-23 19:00 | NUR ---
RN OPENING NOTES RECEIVED REPORT FROM AM SHIFT RN, PATIENT IN BED, ASLEEP, NON VERBAL, NOTED WITH NO SOB, BREATHING EVEN AND UNLABORED, IN NO ACUTE DISTRESS, WITH NO FACIAL GRIMACING. ALL PATIENT'S NEEDS ATTENDED TO AT THIS TIME. CALL LIGHT PLACED WITHIN EASY REACH. PLACED BED IN LOW POSITION AND LOCKED IN PLACE.
--- NOTE | 2017-04-23 19:30 | NUR ---
RN NOTES: PATIENT RESTING IN BED. AOX1-2. EASILY AROUSABLE. NO FACIAL GRIMACING NOTED. NO SIGNS OF DISTRESS NOTED. NONLABORED BREATHING ON ROOM AIR. TRACH WITH PORTEX 5 IS CAPPED. MIDLINE ON GREGORY PATENT AND INTACT. SAFETY PREACUTIONS IMPLEMENTED. DRESSINGS CHANGED PER DR REDDY ORDERS. NO SIGNS OF INFECTION NOTED. PER DR REDDY'S YOLA TO BE REMOVED BY HIM Addendum: 04/24/17 at 1824 by HAYLIE COLLIER RN RN NOTES: PORTEX 6
[2017-04-23 20:00] VITALS: BP 154/84
--- NOTE | 2017-04-24 06:26 | NUR ---
RN CLOSING NOTE PATIENT IN BED, ALERT AND ORIENTED TO SELF, NON VERBAL, NOTED WITH NO SOB, BREATHING EVEN AND UNLABORED, HOB ELEVATED THROUGHOUT THE SHIFT. PATIENT CONTINUES TO RECEIVE G-TUBE FEEDING ORDERED AND IS TOLERATING WELL. CHECKED IN PLACE, NO RESIDUAL NOTED. ALL PATIENT'S NEEDS ATTENDED TO AT THIS TIME. CALL LIGHT PLACED WITHIN EASY REACH. WILL ENDORSE TO AM SHIFT NURSE FOR CONTINUITY OF CARE..
--- NOTE | 2017-04-24 07:36 | NUR ---
RN NOTES: PATIENT RESTING IN BED. AOX1-2. EASILY AROUSABLE. NO FACIAL GRIMACING NOTED. NO SIGNS OF DISTRESS NOTED. NONLABORED BREATHING ON ROOM AIR. TRACH WITH PORTEX 6 IS CAPPED. MIDLINE ON GREGORY PATENT AND INTACT. SAFETY PREACUTIONS IMPLEMENTED. SAFETY PRECUATIONS IMPLEMENTED. BED IN LOWEST LOCKED POSITION. CALL LIGHT WITHIN REACH. WILL CONTINUE TO MONITOR
[2017-04-24 08:00] VITALS: BP_SYST 129; BP_SYST 143; BP_DIAS 61; BP_DIAS 92
[2017-04-24] MEDS: PANTOPRAZOLE 40 MG VIAL IV SCH (08:31)
[2017-04-24 08:33] LABS: BASOPHILS % (AUTO) 0.1 % (0.0-2.0); EOSINOPHILS # (AUTO) 0.3 /CMM (0.0-0.7); EOSINOPHILS % (AUTO) 4.3 % (0.0-6.0); HEMATOCRIT 29 % (33-45); HEMOGLOBIN 10.1 g/dL (11.5-14.8); LYMPHOCYTES % (AUTO) 16.1 % (20.0-44.0); MEAN CORPUSCULAR HEMOGLOBIN 30 PG (26.0-33.0); MEAN CORPUSCULAR HGB CONC 35 g/dl (31.0-36.0); MEAN CORPUSCULAR VOLUME 88 fL (82-100); MONOCYTES # (AUTO) 0.4 /CMM (0.1-1.30); MONOCYTES % (AUTO) 6.3 % (2.0-12.0); NEUTROPHILS # (AUTO) 4.3 /CMM (1.8-8.9); NEUTROPHILS % (AUTO) 73.2 % (43.0-81.0); PLATELET COUNT (AUTO) 296 /CMM (150-450); RDW COEFFICIENT OF VARIATION 13.6 (11.5-15.0); RED BLOOD CELL COUNT(AUTO) 3.31 MIL/uL (4.0-5.2); WHITE BLOOD COUNT (AUTO) 5.9 K/uL (4.3-11.0)
[2017-04-24] MEDS: HYDROCODONE/APAP 5/325MG 1 EACH TABLET PO PRN ×2 (08:35→17:13)
[2017-04-24 09:26] LABS: CALCIUM, SERUM 8.2 mg/dL (8.5-10.1); CREATININE 0.7 mg/dL (0.6-1.3); MAGNESIUM 1.8 mg/dL (1.8-2.4); PHOSPHORUS 3.3 mg/dL (2.5-4.9); POTASSIUM 3.6 mmol/L (3.5-5.1)
[2017-04-24] MEDS: FIBERSOURCE HN 1,000 ML BOTTLE GT PRN (11:55)
[2017-04-24] MEDS: IV D5/0.45 NACL 1,000 ML IV PRN ×2 (11:56→21:56)
[2017-04-24 16:00] VITALS: BP 148/94
[2017-04-24] MEDS: LEVOFLOXACIN (500MG) 500 MG TABLET PO SCH (16:14)
--- NOTE | 2017-04-24 18:00 | NUR ---
RN NOTES: PATIENT GIVEN A BED BATH DURING SHIFT. TURNED AND REPOSITIONED EVERY 2 HOURS. KEPT CLEAN AND DRY. HEELS OFFLOADED
--- NOTE | 2017-04-24 18:24 | NUR ---
RN NOTES: PATIENT RESTING IN BED. AOX1-2. EASILY AROUSABLE, YI SPEAKING .UNDERSTANDS [place]. NO FACIAL GRIMACING NOTED. NO SIGNS OF DISTRESS NOTED. NONLABORED BREATHING ON ROOM AIR. TRACH WITH PORTEX 6 IS CAPPED. MIDLINE ON GREGORY PATENT AND INTACT WELL IV ON RIGHT HAND GAUGE 22 PATENT AND INTACT. SAFETY PREACUTIONS IMPLEMENTED. BED IN LOWEST LOCKED POSITION. CALL LIGHT WITHIN REACH. GTUBE FEEDING RUNNING PER ORDERS WELL D51/2 NS PER ORDERS. NO DIARREA NOTED TODAY. 10 ML OF SANGUINOUS DRAINAGE OUTPUT OF YOLA DRAIN. PATIENT AFBRILE THROUGHOUT SHIFT. DRESSINGS INTACT THROUGHOUT SHIFT ON ABDOMEN. WILL ENDORSE TO NEXT SHIFT
--- NOTE | 2017-04-24 19:25 | NUR ---
RN OPENING NOTES RECEIVED REPORT FROM AM SHIFT NURSE, PATIENT IN BED, EYES OPEN, ALERT AND ORIENTED TO SELF, NOTED WITH NO SOB, BREATHING EVEN AND UNLABORED, NO FACIAL GRIMACING NOTED, ALL PATIENT'S NEEDS ATTENDED TO AT THIS TIME, CONTINUES TO RECEIVE GTUBE FEEDNG ORDERED, GTUBE IN PLACE AND PT IS TOLERATING WELL. PATIENT CONTINUES TO RECEIVE IVF ORDERED, INFUSING WELL VIA IV PERIPHERAL LINE ON LEFT HAND. PLACED CALL LIGHT WITHIN EASY REACH. WILL CONTINUE TO MONITOR.
[2017-04-24 20:00] VITALS: BP 141/89
--- NOTE | 2017-04-24 20:18 | NUR ---
RN NOTE DR. REDDY AT BEDSIDE, REMOVED PATIENT'S YOLA DRAIN WITH 25 CC SANGUINEOUS OUTPUT. PATIENT TOLERATED PROCEDURE WELL. DR. REDDY WITH NEW ORDERS FOR SURGICAL CHAKA ON ABDOMEN AND DRESSING ORDERS FOR YOLA DRAIN SITE. ALL ORDERS NOTED AND CARRIED OUT. WILL CONTINUE TO MONITOR PATIENT.
[2017-04-24] MEDS: ZOLPIDEM TARTRATE 5 MG TABLET PO PRN (22:01)
[2017-04-25 04:00] VITALS: BP 128/72
--- NOTE | 2017-04-25 07:20 | NUR ---
RN CLOSING NOTES PATIENT IN BED, CONTINUES TO RECEIVE GTUBE FEEDING ORDERED, TOLERATING WELL. RECEIVING IVF ORDERED VIA IV LINE ON RHAND G22 INFUSING WELL. PT IS ASLEEP BUT EASILY AROUSABLE, OPENS EYES, IN NO ACUTE DISTRESS, NO SOB, BREATHING EVEN AND UNLABORED. CALL LIGHT PLACED WITHIN EASY REACH, PLACED BED IN LOW POSITION AND LOCKED IN PLACE. WILL ENDORSE TO [facility] HIFT NURSE FOR CONTINUITY OF CARE.
[2017-04-25] MEDS: FIBERSOURCE HN 1,000 ML BOTTLE GT PRN (07:24)
--- NOTE | 2017-04-25 07:25 | NUR ---
RN OPENING NOTES. PT RECEIVED A&0X1, [place] SPEAKING WITH MINIMAL LATVIAN, MINIMAL ENGAGEMENT, NIGHT NURSE INDICATING THIS IS CONSISTENT WITH HER NIGHT OBSERVATIONS. PT TOLERATING ROOM AIR, BREATHING EVEN UNLABORED AND IS WITHOUT S/S OR RESP DISTRESS. PT WITH CAPPED TRACH PURTEX#6. PT INDICATING MINOR ABDOMINAL PAIN. PT WITH R IVC INTACT AND OPERATIONAL. PT WITH SINGH CATH INTACT AND OPERATIONAL WITH LITE YELLOW URINE IN COLLECTION. ABDOMINAL INC INSPECTED, DRESSING INTACT. PT WITH G TUBE FEEDING WITH FIBERSOURCE AT 50CC/PH. PT BED IN LOWEST LOCKED WITH [id number], CALL KELLER WITHIN REACH. WILL CONTINUE TO MONITOR.
[2017-04-25 07:49] LABS: BASOPHILS % (AUTO) 0.3 % (0.0-2.0); EOSINOPHILS # (AUTO) 0.3 /CMM (0.0-0.7); EOSINOPHILS % (AUTO) 3.4 % (0.0-6.0); HEMATOCRIT 31 % (33-45); HEMOGLOBIN 10.5 g/dL (11.5-14.8); LYMPHOCYTES # (AUTO) 0.9 /CMM (0.8-4.8); LYMPHOCYTES % (AUTO) 10.1 % (20.0-44.0); MEAN CORPUSCULAR HEMOGLOBIN 30 PG (26.0-33.0); MEAN CORPUSCULAR HGB CONC 34 g/dl (31.0-36.0); MEAN CORPUSCULAR VOLUME 89 fL (82-100); MONOCYTES # (AUTO) 0.5 /CMM (0.1-1.30); MONOCYTES % (AUTO) 5.7 % (2.0-12.0); NEUTROPHILS # (AUTO) 7.1 /CMM (1.8-8.9); NEUTROPHILS % (AUTO) 80.5 % (43.0-81.0); PLATELET COUNT (AUTO) 336 /CMM (150-450); RDW COEFFICIENT OF VARIATION 13.3 (11.5-15.0); RED BLOOD CELL COUNT(AUTO) 3.47 MIL/uL (4.0-5.2); WHITE BLOOD COUNT (AUTO) 8.8 K/uL (4.3-11.0)
[2017-04-25 08:00] VITALS: BP 129/78
[2017-04-25 08:05] LABS: CALCIUM, SERUM 8.4 mg/dL (8.5-10.1); CREATININE 0.7 mg/dL (0.6-1.3); MAGNESIUM 1.8 mg/dL (1.8-2.4); PHOSPHORUS 2.9 mg/dL (2.5-4.9); POTASSIUM 3.5 mmol/L (3.5-5.1)
[2017-04-25] MEDS: PANTOPRAZOLE 40 MG VIAL IV SCH (09:12)
[2017-04-25] MEDS: HYDROCODONE/APAP 5/325MG 1 EACH TABLET PO PRN (09:28)
[2017-04-25] MEDS: IV D5/0.45 NACL 1,000 ML IV PRN (14:13)
[2017-04-25] MEDS: LEVOFLOXACIN (500MG) 500 MG TABLET PO SCH (17:54)
[2017-04-25] MEDS: ACETAMINOPHEN 325 MG TABLET PO PRN (17:54)
--- NOTE | 2017-04-25 19:46 | NUR ---
RN D/C NOTES. PT PREPARED FOR D/C PER . REPORT CALLED TO [facility] TREVI[facility]O. PT FOR ROOM 50C. PT A&0X1, MINIMAL ENGAGEMENT. PT TOLERATING ROOM AIR, BREATHING EVEN UNLABORED AND IS WITHOUT S/S OR RESP DISTRESS. PT WITH CAPPED TRACH PURTEX#6. PT IVC REMOVED AND NAD AT SITE. PT SINGH CATH D/C AND [id number] TO SNF TO ENSURE OUTPUT. ABDOMINAL INCS DRESSING CLEAN AND INTACT WITH NAD AT SITE. G TUBE FLUSHED AND CAPPED.PT WITHOUT BELONGINGS AND DOCUMENT SIGNED. PT WITH SOH D/C PACKED SIGNED BY RNX2 GIVEN TO EMT CREW. PT TRANSPORT WITH EMT CREW.
== END 2017-04-25 19:12 | DRG 710 ==
LOC: ER 12:36 → TELE1 15:54 → TELE-TD 16:25 → TELE1 04-17 13:19 → MEDSG1 04-19 11:12 → MED 04-20 14:36
PROVIDERS: ADMIT Internal Medicine; ATTEND Internal Medicine
DX: A41.9 Sepsis, unspecified organism (principal); G93.40 Encephalopathy, unspecified; E43 Unspecified severe protein-calorie malnutrition; J96.10 Chronic respiratory failure, unspecified whether with hypoxia or hypercapnia; J96.11 Chronic respiratory failure with hypoxia; E87.2 Acidosis; R53.2 Functional quadriplegia; K81.0 Acute cholecystitis; Z93.0 Tracheostomy status; M48.56XA Collapsed vertebra, not elsewhere classified, lumbar region, initial encounter for fracture; Z93.1 Gastrostomy status; R13.10 Dysphagia, unspecified; K21.9 Gastro-esophageal reflux disease without esophagitis; E11.9 Type 2 diabetes mellitus without complications; D63.8 Anemia in other chronic diseases classified elsewhere; Z88.0 Allergy status to penicillin; Z88.8 Allergy status to other drugs, medicaments and biological substances; Z87.820 Personal history of traumatic brain injury; E83.42 Hypomagnesemia; J98.11 Atelectasis; E87.6 Hypokalemia; Z79.82 Long term (current) use of aspirin; Z79.899 Other long term (current) drug therapy; E66.01 Morbid (severe) obesity due to excess calories; E46 Unspecified protein-calorie malnutrition; Z68.22 Body mass index [BMI] 22.0-22.9, adult
CPT/HCPCS: 36415; 36569; 71045-TC; 76705-TC; 78226; 80048-TC; 80053-TC; 80076-TC; 81000-TC; 82150-TC; 83605-TC; 83690-TC; 83735-TC; 84100-TC; 84484-TC; 85025-TC; 85610-TC; 87040-TC; 87081-TC; 88304-TC; 88305-TC; 93307-TC; A4216; A4606; A6402; A6403; A9537; C9113; J0744; J1100; J1885; J1956; J2270; J2405; J2710; J3010; J3475; J3480; J3490; J7030; J7040; J7042; Z7610